=== PATIENT | female | born 1975 | race Two or more races ===

== ENCOUNTER 2017-10-24 17:58 | Emergency (ER) | payer MEDICAID ==
[~2017-10-24] VITALS: Ht 149.9 cm; Wt 47.6 kg
[~2017-10-24 17:58] MED LIST: IBUPROFEN600 MG ORAL; NORCO 5-325 TA1 EAC1 ORAL; NORCO 5-325 TA1 EACH ORAL
--- NOTE | 2017-10-24 18:35 | Emergency Room Report ---
History of Present Illness General Chief Complaint: Eye Problems Source: Patient Present Illness HPI 42-year-old female presents to the emergency department for swelling, itching and 7/10 in severity generalized tenderness to the left eye since this a.m. Patient reports that she had moderate itching since yesterday morning however at this morning she woke up and her eyelid was swollen. She denies foreign body sensation or scratching sensation in the eye. Patient denies increased lacrimation she reports dryness of the left eye she denies sneezing or nasal congestion she reports she has some swelling to the left side of the face next to the ear. Denies lesions/rashes elsewhere on the body. Denies new medications or body washes or creams. Denies swelling of the lips, tongue , throat or airway. Denies wheezing, or shortness of breath. Denies recent travel , recent illness or ill contacts. denies blisters, oral lesions, or sloughing of the skin. Denies: Discharge, injection, Loss of vision, Floaters, Flashing lights, or Diplopia/blurry vision. Denies runny nose, nasal congestion, fevers or chills. She reports she attempted to be evaluated at a clinic, however she was referred to ED for evaluation. Pt. reports she had a YEN frontally for three days prior to onset of her symptoms. it resolved before onset of itching and swelling. Allergies: Coded Allergies: No Known Allergies (Unverified , 03/13/15) Patient History Past Medical History: see triage record Past Surgical History: none Pertinent Family History: none Last Menstrual Period: 10/18/17 Now: No Reviewed Nursing Documentation: PMH: Agreed; PSxH: Agreed Nursing Documentation-PMH Past Medical History: No History, Except For Hx Cardiac Problems: No - Hyperthyroidism Hx Diabetes: No - HX of thyroiditis Review of Systems All Other Systems: negative except mentioned in HPI Physical Exam Vital Signs Date Time Temp Pulse Resp B/P (MAP) Pulse Ox O2 Delivery O2 Flow Rate FiO2 10/24/17 18:04 98.1 85 12 141/75 99 Room Air 98.1 Sp02 EP Interpretation: reviewed, normal General Appearance: no apparent distress, alert, GCS 15, non-toxic Head: normocephalic, atraumatic Eyes: left eye other - swelling to the Upper and lower eyelid of the left eye. No pain upon movement during EOM testing. palpable preauricular lymph node on the left side. no evidence of hordeolum or chalazion. mild erythema , no increased temperature to palpation, no eye discharge. pupils are reactive and not fixed. no photophobia. ; bilateral eye normal inspection, bilateral eye PERRL, bilateral eye EOMI, bilateral eye visual acuity - 20/25 in the left , 20/ 30 in the right. ENT: hearing grossly normal, normal voice, other - preauricular lymphnode swelling of the left ear. Neck: full range of motion, no bony tend Respiratory: chest non-tender, lungs clear, normal breath sounds, speaking full sentences Musculoskeletal: back normal, gait/station normal, normal range of motion, non- tender Neurologic: alert, oriented x3, responsive, motor strength/tone normal, sensory intact, normal gait, speech normal, grossly normal Psychiatric: judgement/insight normal Skin: warm/dry, well hydrated, other - swelling to the Upper and lower eyelid of the left eye. No pain upon movement during EOM testing. palpable preauricular lymph node on the left side. no evidence of hordeolum or chalazion. mild erythema , no increased temperature to palpation, no eye discharge. pupils are reactive and not fixed. no photophobia. Medical Decision Making PA Attestation Dr. Kelly is my supervising Physician whom patient management has been discussed with. Diagnostic Impression: Primary Impression: Allergic eye reaction Additional Impression: Allergic reaction Qualified Codes: T78.40XA - Allergy, unspecified, initial encounter ER Course 42-year-old female presents to the emergency department for swelling, itching and 7/10 in severity generalized tenderness to the left eye since this a.m. Patient reports that she had moderate itching since yesterday morning however at this morning she woke up and her eyelid was swollen. She denies foreign body sensation or scratching sensation in the eye. Patient denies increased lacrimation she reports dryness of the left eye she denies sneezing or nasal congestion she reports she has some swelling to the left side of the face next to the ear. Denies lesions/rashes elsewhere on the body. Denies new medications or body washes or creams. Denies swelling of the lips, tongue , throat or airway. Denies wheezing, or shortness of breath. Denies recent travel , recent illness or ill contacts. denies blisters, oral lesions, or sloughing of the skin. Denies: Discharge, injection, Loss of vision, Floaters, Flashing lights, or Diplopia/blurry vision. Denies runny nose, nasal congestion, fevers or chills. She reports she attempted to be evaluated at a clinic, however she was referred to ED for evaluation. Pt. reports she had a YEN frontally for three days prior to onset of her symptoms. it resolved before onset of itching and swelling. Ddx considered but are not limited to: corneal abrasion, acute glaucoma, globe rupture, FB, Corneal Ulcer, conjunctivitis. Iridis, orbital cellulitis,keratitis , sinusitis just to name a few. Vital signs: are WNL, pt. is afebrile H&PE are most consistent with: Allergic reaction with swelling to the Upper and lower eyelid of the left eye. No pain upon movement during EOM testing. palpable preauricular lymph node on the left side. no evidence of hordeolum or chalazion. mild erythema , no increased temperature to palpation, no eye discharge. pupils are reactive and not fixed. no photophobia. no scleral injection. ORDERS: none required at this time. ED INTERVENTIONS: -Benadryl PO -Tylenol PO -re-evaluation: pt. swelling is improving as well as erythema compared to initial presentation. Pt. reports some continued mild itching. Discussed with patient that she'll be discharged with medications for allergic reactions however due to location of her symptoms she will also be prescribed antibiotics. Discussed the patient to return immediately to the emergency department for IV antibiotics if she has worsening of her current symptoms. DISCHARGE: At this time pt. is stable for d/c to home. Will provide printed patient care instructions, and any necessary prescriptions. Care plan and follow up instructions have been discussed with the patient prior to discharge. Last Vital Signs Date Time Temp Pulse Resp B/P (MAP) Pulse Ox O2 Delivery O2 Flow Rate FiO2 10/24/17 18:04 98.1 85 12 141/75 99 Room Air 98.1 Disposition: HOME, SELF-CARE Condition: Stable Scripts Diphenhydramine Hcl (BENADRYL ALLERGY) 25 Mg Tablet 25 MG PO Q6HR, #20 TAB Prov: Yumiko Tao 10/24/17 Doxycycline Hyclate* (VIBRAMYCIN*) 100 Mg Capsule 100 MG ORAL EVERY 12 HOURS for 7 Days, #14 CAP 0 Refills Prov: Yumiko Tao 10/24/17 Cetirizine Hcl* (ZYRTEC*) 10 Mg Tablet 10 MG ORAL DAILY, #30 TAB 0 Refills Prov: Yumiko Tao 10/24/17 Patient Instructions: Allergic Conjunctivitis, [id number] Additional Instructions: Take medications as directed. Watch carefully for worsening of symptoms, if they worsen return immediately to ED, IV antibiotics would be required at that point. Follow up with a Primary Care Provider in 3-5 days, even if your symptoms have resolved. --Please review list of primary care clinics, if you do not already have a primary care provider Return sooner to ED if new symptoms occur, or current symptoms become worse. - Please note that this Emergency Department Report was dictated using [employer] billing coordinator technology software, occasionally this can lead to erroneous entry secondary to interpretation by the dictation equipment. Yumiko Tao Oct 24, 2017 18:35
[2017-10-24 18:46] VITALS: BP 141/75
[2017-10-24] MEDS ORDERED: VIBRAMYCIN100 MG ORAL (19:32)
[2017-10-24] MEDS ORDERED: ZYRTEC10 MG ORAL (19:32)
[2017-10-24] MEDS ORDERED: BENADRYL ALLERG25 M1 PO (19:32)
[2017-10-24 19:50] VITALS: BP 116/76
== END 2017-10-24 19:50 | disposition home or self-care (01) ==
LOC: EMR 19:18
DX: T78.40XA Allergy, unspecified, initial encounter (principal); X58.XXXA Exposure to other specified factors, initial encounter; R60.0 Localized edema
CPT/HCPCS: 99284